=== PATIENT | male | born 1970 | race Caucasian/White ===

== ENCOUNTER → 2018-05-21 | Outpatient (CLI) | payer OTHER ==
[~2018-05-21] MED LIST: GADOBUTROL 7.5 MMOL/7.5 ML PFS ONE
== END | disposition home or self-care (01) ==
LOC: RAD 11:56
PROVIDERS: ATTEND Physician Assistant
DX: M62.531 Muscle wasting and atrophy, not elsewhere classified, right forearm (principal); G56.01 Carpal tunnel syndrome, right upper limb; M79.89 Other specified soft tissue disorders
CPT/HCPCS: 73223; A9585